=== PATIENT | male | born 1945 | race Caucasian/White ===

== ENCOUNTER 2020-08-20 10:21 | Outpatient (CLI) | payer OTHER, MEDICARE, SELFPAY ==
--- NOTE | ~2020-08-20 | PE_ITS ---
EXAMINATION: PET skull to mid thigh DATE: 08/20/2020 12:18 INDICATION: Lung mass. TECHNIQUE: Blood glucose level was 86 mg/dL. 10.389 mCi of 18-fluorodeoxyglucose (18-FDG) was adminis tered i.v. Low dose computed tomography (CT) images were acquired from the base of the brain to the p roximal thighs for attenuation correction and anatomic localization. Automated exposure control was e mployed. Dose-length product (DLP) was 690 mGy-cm. Positron emission tomography (PET) images were acq uired in the same distribution. COMPARISON: None FINDINGS: Head/neck: Right maxillary sinus is small and completely opacified. There is increased activity in th e major salivary glands glands without CT correlate, likely physiologic. There are no pathologically enlarged lymph nodes. There is a 2.4 cm nodule in left thyroid lobe without activity. Chest: There is an 11 mm nodule in superior segment left lower lobe without increased activity. There are patchy airspace opacities in basilar left lower lobe with areas of cavitation. Most of the opaci ties do not demonstrate increased density. A 3.7 cm mass in posterobasal segment left lower lobe demo nstrates maximum SUV of 7.1. No pleural effusion. Cardiomegaly is noted. There are coronary artery ca lcifications. No pericardial effusion. Abdomen/pelvis/proximal thighs: The liver, gallbladder, spleen, pancreas, adrenal glands, and kidneys are normal. There are no dilated loops of bowel. There is diverticulosis of the colon without eviden ce of diverticulitis. The prostate is moderately enlarged. The appendix is normal. There are no patho logically enlarged lymph nodes. There is no free intraperitoneal fluid. IMPRESSION: 1. Opacities in left lung lower lobe with increased activity in a mass in posterobasal segment left l ower lobe. These findings are most likely pneumonia. Noncontrast chest CT is recommended in one month to exclude malignancy. 2. Left thyroid nodule without increased activity. Consider thyroid ultrasound for risk stratificatio n. Reviewed, dictated and finalized at location A. IMPRESSION: 1. Opacities in left lung lower lobe with increased activity in a mass in poste robasal segment left lower lobe. These findings are most likely pneumonia. Nonc ontrast chest CT is recommended in one month to exclude malignancy. 2. Left thyroid nodule without increased activity. Consider thyroid ultrasound for risk stratification.
[2020-08-20 10:46] LABS: Glucose Point of Care 86 mg/dl (65-105)
== END 2020-08-20 10:22 | disposition home or self-care (01) ==
PROVIDERS: PCP Family Medicine; Visit Provider Family Medicine
DX: R91.8 Other nonspecific abnormal finding of lung field (principal)
CPT/HCPCS: 78815; 82948; A9552

== ENCOUNTER → 2020-09-17 12:14 | Outpatient (CLI) | payer OTHER, MEDICARE, SELFPAY ==
--- NOTE | ~2020-09-17 | US_ITS ---
EXAMINATION: US thyroid EXAM DATE: 09/17/2020 12:41 INDICATION: Thyroid nodule on the left seen on PET/CT without activity. TECHNIQUE: Multiple grayscale and Doppler images of the thyroid were obtained (by a technologist who performed the scan) and subsequently reviewed. Individual nodules and recommendations may be reporte d in accordance with TI-RADS system as designated by the 2017 ACR White Paper TI-RADS committee. The re is no prior study for comparison. FINDINGS: The right thyroid lobe measures 3.1 x 1.3 x 1.5 cm, the left measuring 3.5 x 2.7 x 2.3. The thyroid e chogenicity is relatively homogeneous. Largest thyroid nodule is in the left thyroid lobe measuring 3.1 cm, anechoic cystic lesion, likely b enign. There is a right thyroid lobe nodule measuring 1.3 x 1.0 x 1.3 cm, solid (2 points), hypoechoi c (2 points), wider than tall, smooth well defined margin, without echogenic foci, category TR4 for t his nodule. IMPRESSION: 1. Solid right thyroid lobe nodule; recommend one-year follow-up ultrasound. 2. Left thyroid cysts. Reviewed, dictated and finalized at location A.
== END ==
PROVIDERS: PCP Family Medicine; Visit Provider Family Medicine
DX: E04.1 Nontoxic single thyroid nodule (principal)
CPT/HCPCS: 76536